=== PATIENT | male | born 1980 | race Caucasian/White ===

== ENCOUNTER 2016-04-06 17:17 | Emergency (ER) | payer OTHER ==
[2016-04-06 17:28] VITALS: BP 140/85; PULSE 87; TEMP 98; BMI 28.3
--- NOTE | 2016-04-06 19:01 | PDOC ---
History of Present Illness - General Stated Complaint: RT HAND FEELS FUNNY Time Seen by Provider: 04/06/16 18:27 History Source: Patient Exam Limitations: No Limitations - History of Present Illness Initial Comments: 04/06/16 18:55 Chief complaint: Thumb complaint Patient 35-year-old male with no significant medical history who states that his right thumb feels weird with the sensation going up his arm across to his elbow. Patient denies any weakness, states he can feel everything and move everything. No headache, difficulty speaking. Patient is not actively working now. GENERAL/CONSTITUTIONAL: No fever, weakness. dizziness HEAD, EYES, EARS, NOSE AND THROAT: No change in vision. No ear pain or discharge. No sore throat. CARDIOVASCULAR: No chest pain RESPIRATORY: No shortness of breath or cough GASTROINTESTINAL: No pain, nausea, vomiting, diarrhea or constipation GENITOURINARY: No dysuria MUSCULOSKELETAL: No neck or back pain, +weird sensation to thumb SKIN: No rash NEUROLOGIC: No headache, vertigo, loss of consciousness, or loss of sensation. GENERAL: The patient is awake, alert, and fully oriented, in no acute distress. HEAD: Normal with no signs of trauma. EYES: Pupils equal, round and reactive to light, sclera anicteric, conjunctiva clear. ENT: pharynx: no erythema, no exudate, uvula midline NECK: supple CHEST: clear, nontender, rr ABD: soft, nontender EXTREMITIES: Normal range of motion, no edema. No swelling, erythema or tenderness. Strength 5 out of 5 upper and lower extremities, neurovascular intact NEUROLOGICAL: Normal speech, normal gait. SKIN: Warm, Dry Past History - Past Medical History Allergies/Adverse Reactions: Allergies Allergy/AdvReac Type Severity Reaction Status Date / Time No Known Allergies Allergy Verified 04/06/16 17:28 Home Medications: Ambulatory Orders NK [No Known Home Medication] 11/09/14 Psychiatric Problems: Yes (ANXIETY.) - Psycho/Social/Smoking Cessation Hx Anxiety: Yes Suicidal Ideation: No Smoking History: Never smoked Have you smoked in the past 12 months: No Information on smoking cessation initiated: No Hx Alcohol Use: No Drug/Substance Use Hx: No Substance Use Type: None *Physical Exam - Vital Signs Last Vital Signs Temp Pulse Resp BP Pulse Ox 98 F 87 18 140/85 100 04/06/16 17:26 04/06/16 17:26 04/06/16 17:26 04/06/16 17:26 04/06/16 17:26 Medical Decision Making - Medical Decision Making 04/06/16 18:56 Patient with weird sensation to thumb, little bit to the area around the index finger going up the arm towards the left elbow following the radial nerve. this has been going on for a few weeks. No other symptoms. neuro intact. no indication for acute imaging or work up. has appointment with pmd. will place on nsaids and pmd can reevaluated. *DC/Admit/Observation/Transfer Diagnosis at time of Disposition: Hand discomfort Qualifiers: Laterality: right Qualified Code(s): M79.641 - Pain in right hand - Discharge Dispostion Disposition: HOME Condition at time of disposition: Stable Admit: No - Referrals Referrals: Ginny Yeboah MD [Primary Care Provider] - - Patient Instructions Additional Instructions: This may be related to a nerve, it is very important for you to see your doctor as scheduled on the Motrin 600 mg every 6 hours for pain. Return to the ER if worse
== END 2016-04-06 19:06 | disposition home or self-care (01) ==
LOC: JERFT 17:17
DX: M79.641 Pain in right hand (principal)
CPT/HCPCS: 99281-25

== ENCOUNTER 2022-06-14 11:29 | Emergency (ER) | payer OTHER ==
[2022-06-14 11:49] VITALS: BP 116/60; PULSE 63; RESP 18; TEMP 98; BMI 24.7
[2022-06-14] MEDS ORDERED: IBUPROFEN 600 MG TABLET (FP) PO ONE (12:46)
[2022-06-14] MEDS ORDERED: ACETAMINOPHEN 500 MG TABLET (FP) PO ONE (12:57)
[2022-06-14] MEDS ORDERED: ACETAMINOPHEN 500 MG TABLET (FP) ONE (13:00)
== END 2022-06-14 16:18 | disposition home or self-care (01) ==
LOC: JER 11:29 → JERFT 11:29
DX: R22.0 Localized swelling, mass and lump, head (principal); K08.89 Other specified disorders of teeth and supporting structures; K04.7 Periapical abscess without sinus
CPT/HCPCS: 70486-TC; 99284-25

== ENCOUNTER 2023-08-18 09:22 | Emergency (ER) | payer OTHER ==
[2023-08-18 09:54] VITALS: BP 120/86; PULSE 76; RESP 16; TEMP 98.8; BMI 24.6
== END 2023-08-18 10:09 | disposition home or self-care (01) ==
LOC: FER 09:22
DX: R09.82 Postnasal drip (principal); H92.01 Otalgia, right ear; R05.9 Cough, unspecified; R09.81 Nasal congestion
CPT/HCPCS: 99283-25